=== PATIENT | female | born 1995 | race Caucasian/White ===

== ENCOUNTER → 2017-04-20 | Outpatient (CLI) | payer BC ==
--- NOTE | 2017-04-20 10:12 | Diagnostic Imaging Report ---
First trimester OB ultrasound. INDICATION: Dating. FINDINGS: There is a normal-appearing single intrauterine . An embryo is seen with cardiac activity at 160 beats per minute. The crown-rump length is at 7 weeks and 3 days. CORWIN is 12/04/17. IMPRESSION: Live single intrauterine . Dictated by: Dictated on workstation # [id number]
== END ==
LOC: RAD 09:33
PROVIDERS: ATTEND Family Medicine
DX: Z36 Encounter for antenatal screening of mother (principal); Z3A.00 Weeks of gestation of pregnancy not specified
CPT/HCPCS: 76801

== ENCOUNTER → 2017-07-04 | Outpatient (CLI) | payer BC ==
--- NOTE | 2017-07-04 18:00 | Diagnostic Imaging Report ---
INDICATION: survey. TECHNIQUE: Multiple real-time grayscale images were obtained over the gravid uterus. COMPARISON: 04/20/2017 FINDINGS: Single live intrauterine fetus. The fetus is active in variable. Placenta is posterior. Placenta does extend into the lower uterine segment and does appear to represent a previa at this time. Amniotic fluid index is normal. heart rate of 143 beats per minute. anatomical survey was somewhat limited as the spine and four-chamber heart were not demonstrated due to positioning. The remainder of the survey was normal. Biometrical measurements are as follows: Biparietal 4.18 cm, age 18 weeks 5 days. Head circumference 15.78 cm, age 18 weeks 5 days. Abdominal circumference 12.83 cm, age 18 weeks 3 days. Femur length 3.08 cm, age 19 weeks 4 days. Sonographic estimate age: 18 weeks 6 days. Sonographic estimated date of delivery: 11/29/2017. Estimated Weight: 263 gm (+/- 39 gm). LMP percentile: 88%. heart rate: 134 beats per minute. number: 1 of 1. IMPRESSION: 1. Current ultrasound shows biometric measurements average for 18 week 6 day gestation. Previous ultrasound indicates 18 week 1 day gestation which is within one standard deviation. 2. Limited survey with spine not well demonstrated and four-chamber heart not demonstrated on this exam. Remainder of the exam was normal. Dictated by: Dictated on workstation # [id number]
== END ==
LOC: RAD 16:50
PROVIDERS: ATTEND Family Medicine
DX: Z36.87 Encounter for antenatal screening for uncertain dates (principal); Z3A.18 18 weeks gestation of pregnancy
CPT/HCPCS: 76805

== ENCOUNTER → 2017-08-24 | Outpatient (CLI) | payer BC ==
--- NOTE | 2017-08-24 18:48 | Diagnostic Imaging Report ---
INDICATION: Earlier exam was limited visualization of the spine and heart. Followup performed. EXAMINATION: OB ultrasound. FINDINGS: Ferrer gestation is in variable position, measuring 25 weeks 3 days. The posterior placenta extends to cover the cervical os. The four-chamber heart and spine are shown to be normal. Amniotic fluid volume is normal. IMPRESSION: Posterior placenta with complete previa redemonstrated. Normal anatomical survey measuring 25 weeks 3 days. TECHNIQUE: Multiple real-time grayscale images were obtained over the gravid uterus. Dictated by: Dictated on workstation # [id number]
== END ==
LOC: RAD 14:31
PROVIDERS: ATTEND Family Medicine
DX: Z34.92 Encounter for supervision of normal pregnancy, unspecified, second trimester (principal); Z3A.25 25 weeks gestation of pregnancy
CPT/HCPCS: 76816

== ENCOUNTER → 2017-09-16 | Outpatient (CLI) | payer BC | LOC: WSo 08:19 | PROVIDERS: ATTEND Family Medicine | DX: Z41.8 Encounter for other procedures for purposes other than remedying health state (principal) | CPT/HCPCS: 96372 ==

== ENCOUNTER → 2017-09-29 | Outpatient (CLI) | payer BC ==
--- NOTE | 2017-09-29 16:21 | Diagnostic Imaging Report ---
INDICATION: Follow-up previa. TECHNIQUE: Multiple real-time grayscale images were obtained over the gravid uterus. COMPARISON: 04/20/2017, 07/04/2017, and 08/24/2017. FINDINGS: The previous OB ultrasound exam performed on 08/24/2017 noted a single live fetus of approximately 25 weeks 2 days gestation. There were no abnormalities identified; however, there did appear to be a complete posterior placenta previa. On this study, the fetus is again identified. The fetus is cephalic in presentation and heart motion is noted with a rate of 129 bpm recorded. There are no obvious abnormalities identified. The posterior placenta previa seen previously is again evident. The placenta has regressed somewhat since the prior exam, but there still appears to be a marginal previa present. The amniotic fluid volume is within normal limits. The growth parameters are not obtained for this study. IMPRESSION: 1. There is a single live fetus of approximately 30 weeks 4 days gestation +/- 1 week. The EDC remains 12/04/2016. 2. The complete posterior placenta previa seen previously has regressed. There is still at least a marginal previa present however. A short-term (4-6 weeks) follow-up ultrasound exam would be recommended for further study. 3. There are no obvious abnormalities identified. Dictated by: Dictated on workstation # [id number]
== END ==
LOC: RAD 12:13
PROVIDERS: ATTEND Family Medicine
DX: O44.23 Partial placenta previa NOS or without hemorrhage, third trimester (principal); Z3A.30 30 weeks gestation of pregnancy
CPT/HCPCS: 76816

== ENCOUNTER → 2017-10-27 | Outpatient (CLI) | payer BC ==
--- NOTE | 2017-10-28 12:09 | Diagnostic Imaging Report ---
INDICATION: Placenta previa. COMPARISON is made with prior examination from 09/29/2017. There is a single live fetus in cephalic presentation. The posterior placenta is now in a low lying position, approximately 1.2 cm from the internal cervical os. Cervical length is 3.5 cm. The amniotic fluid volume is normal. heart rate was recorded at 120 beats per minute. IMPRESSION: Low lying/near marginal posterior placenta, as described. Dictated by: Dictated on workstation # [id number]
== END ==
LOC: RAD 10:19
PROVIDERS: ATTEND Family Medicine
DX: O44.00 Complete placenta previa NOS or without hemorrhage, unspecified trimester (principal); Z3A.00 Weeks of gestation of pregnancy not specified
CPT/HCPCS: 76815

== ENCOUNTER → 2017-11-24 | Outpatient (CLI) | payer BC ==
--- NOTE | 2017-11-24 16:24 | Diagnostic Imaging Report ---
INDICATION: Low-lying placenta TECHNIQUE: Multiple real-time grayscale images were obtained over the gravid uterus. COMPARISON: 04/20/2017 and 10/27/2017. FINDINGS: The previous OB ultrasound exam performed on 10/27/2017 noted a single live fetus in cephalic presentation. There was a posterior low-lying placenta approximately 1.2 cm from the internal cervical os. On this exam, there is again a single live fetus in cephalic presentation. heart motion is noted and a rate of 135 bpm is recorded. The placenta is posterior and low-lying. The placenta lies approximately 1.6 cm from the internal os. The amniotic fluid volume is within normal limits. IMPRESSION: 1. There is a single live fetus in cephalic presentation. 2. The placenta is posterior and low-lying, but the placenta does lie a few millimeters farther from the os than noted on the prior exam. Dictated by: Dictated on workstation # [id number]
== END ==
LOC: RAD 13:08
PROVIDERS: ATTEND Family Medicine
DX: O44.43 Low lying placenta NOS or without hemorrhage, third trimester (principal); Z3A.38 38 weeks gestation of pregnancy
CPT/HCPCS: 76816

== ENCOUNTER 2017-11-30 19:00 | Inpatient (IN) | payer BC ==
[~2017-11-30] VITALS: Ht 170.2 cm; Wt 124.9 kg
[2017-11-30 19:15] VITALS: BP 145/85
[2017-11-30] MEDS ORDERED: ZOLPIDEM 5 MG (AMBIEN) TAB PO PRN (19:15)
[2017-11-30] MEDS ORDERED: DINOPROSTONE 10 MG (CERVIDIL) INSERT PV ONE (19:15)
[2017-11-30] MEDS ORDERED: MINERAL OIL CONCENTRATE 99.9% 15 ML UDC TOP PRN (19:15)
[2017-11-30] MEDS: D5 LR IV SOLUTION 1,000 ML IV SCH (19:35)
[2017-11-30 19:46] LABS: BASOPHILS % (AUTO) 0 % (0-10); EOSINOPHILS # (AUTO) 0.2 10^3/uL (0.0-0.3); EOSINOPHILS % (AUTO) 2 % (0-10); HEMATOCRIT 37 % (35-52); HEMOGLOBIN 12.7 G/DL (11.5-16.0); LYMPHOCYTES # (AUTO) 1.9 X 10^3 (1.0-4.0); LYMPHOCYTES % (AUTO) 17 % (12-44); MEAN CORPUSCULAR HEMOGLOBIN 29 PG (25-34); MEAN CORPUSCULAR HGB CONC 34 G/DL (32-36); MEAN CORPUSCULAR VOLUME 83 FL (80-99); MEAN PLATELET VOLUME 11.7 FL (7.4-10.4); MONOCYTES # (AUTO) 0.8 X 10^3 (0.0-1.0); MONOCYTES % (AUTO) 7 % (0-12); NEUTROPHILS # (AUTO) 8.1 X 10^3 (1.8-7.8); NEUTROPHILS % (AUTO) 74 % (42-75); PLATELET COUNT 189 10^3/uL (130-400); RED BLOOD COUNT 4.44 10^6/uL (4.35-5.85); RED CELL DISTRIBUTION WIDTH 14.1 % (10.0-14.5)
[2017-11-30] MEDS ORDERED: BUTORPHANOL INJ 2 MG/ML (STADOL) VIAL IV PRN (20:15)
[2017-11-30] MEDS ORDERED: FERR159T2 PO (22:17)
[2017-11-30] MEDS ORDERED: PREN-53 PO (22:17)
[2017-11-30] MEDS: CATHETER FLUSH 10 ML SYR IV SCH (22:29)
[2017-11-30 22:39] VITALS: BP 122/84
[2017-12-01] VITALS (21 sets, daily range): BP systolic 104–175; BP diastolic 62–95
[2017-12-01] MEDS: D5 LR IV SOLUTION 1,000 ML IV SCH ×2 (03:29→11:04)
[2017-12-01] MEDS ORDERED: INFLUENZA TRIvalent 2017-2018 0.5 ML/45 MCG SYR IM ONE (07:00)
[2017-12-01] MEDS: CATHETER FLUSH 10 ML SYR IV SCH (07:05)
[2017-12-01] MEDS ORDERED: OXYTOCIN/NORMAL SALINE 500 ML IV SCH ×2 (07:21→11:29)
--- NOTE | 2017-12-01 07:28 | History & Physical-OB ---
OB - Chief Complaint & HPI Date/Time Date of Admission: Date of Admission: Nov 30, 2017 at 20:20 Time Seen by Provider: 07:15 Chief Complaint/History OB-Reason for Admission/Chief: Induction of Labor Hx : 1 Hx Para: 0 Expected Date of Delivery: Dec 04, 2017 Gestational Age in Weeks: 39 Gestational Age in Days: 3 Indication for induction: other (low lying placenta) Admission Nurse Assessment Rev: Yes History of Labs GBS negative Allergies and Home Medications Allergies Coded Allergies: No Known Drug Allergies (Unverified , 11/30/17) Home Medications Ferrous Sulfate, Dried 159 Mg Tablet.er, 159 MG PO DAILY, (Reported) [id number]/Iron Fumarate/FA/Dss 1 Each Tablet, 1 EACH PO DAILY, (Reported) Patient Home Medication List Home Medication List Reviewed: Yes OB - History Hx of Present Care: Yes Ultrasounds: Normal mid trimester US (except for low lying placenta (placental edge within 1.6 cm of os)) Obstetrical Complications: None Medical Complications: None Delivery History Adverse Rxn to Tranfusion: No Patient Past Medical History No chronic medical problems Social History/Family History HIV/AIDS: No Recent Infectious Disease Expo: No Sexually Transmitted Disease: No Alcohol Use: Denies Use Recreational Drug Use: No OB - Admission Exam Physical Exam Vitals: Vital Signs 12/01/17 06:07 Temp 98.6 Pulse 110 Resp 20 B/P (MAP) 130/83 (99) O2 Delivery Room Air HEENT: Moist Membranes Heart: Rhythm Normal Lungs: Clear Abdomen: Gravid Extremities: Normal Reflexes: Normal Cervical Dilatation: None Effacement: 50% Station: -3 Membranes: Intact Heart Rate: 130's Accelerations: Accelerations Present Decelerations: No Decelerations Short Term Variability: Present Road Crossing Guard Variability: Average (6-25) Contractions on Admission: None Salter Scoring Tool (Modified) Dilation (cm): 0/Closed (0) Effacement (%): 31-51% (1) Descent/Station: -3 (0) Cervix Consistency: Soft (2) Cervix Position: Posterior (0) Salter Score: 3 Labs Laboratory Tests Test 11/30/17 19:35 Range/Units White Blood Count 11.0 4.3-11.0 10^3/uL Red Blood Count 4.44 4.35-5.85 10^6/uL Hemoglobin 12.7 11.5-16.0 G/DL Hematocrit 37 35-52 % Mean Corpuscular Volume 83 80-99 FL Mean Corpuscular Hemoglobin 29 25-34 PG Mean Corpuscular Hemoglobin Concent 34 32-36 G/DL Red Cell Distribution Width 14.1 10.0-14.5 % Platelet Count 189 130-400 10^3/uL Mean Platelet Volume 11.7 H 7.4-10.4 FL Neutrophils (%) (Auto) 74 42-75 % Lymphocytes (%) (Auto) 17 12-44 % Monocytes (%) (Auto) 7 0-12 % Eosinophils (%) (Auto) 2 0-10 % Basophils (%) (Auto) 0 0-10 % Neutrophils # (Auto) 8.1 H 1.8-7.8 X 10^3 Lymphocytes # (Auto) 1.9 1.0-4.0 X 10^3 Monocytes # (Auto) 0.8 0.0-1.0 X 10^3 Eosinophils # (Auto) 0.2 0.0-0.3 10^3/uL Basophils # (Auto) 0.0 0.0-0.1 10^3/uL OB - Assessment/Plan/Diagnosis Assessment Assessment: induction of labor Admission Dx 1. IUP at [id number] 2. Low lying placenta Admission Status: Inpatient Order (span 2 midnights) Reason for Inpatient Admission: for induction of labor Plan Plan: Induction (by cervidil) Induction Method: other (cervidil) Other Plan with low lying placenta (1.6cm of os) provided patient progresses well, vaginal to be anticipated. If labor not progressing well, plan on primary low transverse and patient and agree with plan. JEREMIAH WEIR MD Dec 01, 2017 07:28
[2017-12-01] MEDS ORDERED: ceFAZolin 2 GM IV Premixed 50 ML IV NR (11:21)
[2017-12-01] MEDS ORDERED: metroNIDAZOLE 500MG/100ML IVPB 100 ML IV NR (11:21)
[2017-12-01] MEDS ORDERED: LACTATED RINGERS 1,000 ML IV PRN ×2 (11:27)
--- NOTE | 2017-12-01 11:29 | Progress Note-Pre Operative ---
Pre-Operative Progress Note H&P Reviewed The H&P was reviewed, patient examined and no changes noted. Date Seen by Provider: Dec 01, 2017 Time Seen by Provider: 11:28 Date H&P Reviewed: Dec 01, 2017 Time H&P Reviewed: 11:29 Pre-Operative Diagnosis: TIUP FTP High Station JUDI ASCENCIO MD Dec 01, 2017 11:29 am
[2017-12-01] MEDS ORDERED: ONDANSETRON 4 MG/2 ML (SDV) Z0FRAN IVP PRN (11:30)
[2017-12-01] MEDS ORDERED: CITRIC ACID/SOB CIT (BICITRA) 30 ML UDC PO ONE (11:30)
[2017-12-01] MEDS ORDERED: MEASLES,MUMPS,RUBELLA 1 EA INJ SC ONE (11:30)
[2017-12-01] MEDS ORDERED: MEPERIDINE (DEMEROL) INJ 100 MG/ML IM PRN (11:30)
[2017-12-01] MEDS ORDERED: METOCLOPRAMIDE INJ 10 MG/2 ML (REGLAN) IV ONE (11:30)
[2017-12-01] MEDS ORDERED: CATHETER FLUSH 10 ML SYR IV PRN (11:30)
[2017-12-01] MEDS ORDERED: FAMOTIDINE 20MG/2ML IV (PEPCID) IV ONE (11:30)
[2017-12-01] MEDS ORDERED: TETANUS,DIPTH,PERTUSS P/F (BOOSTRIX) 0.5 ML VIAL IM ONE (11:30)
[2017-12-01] MEDS ORDERED: PROMETHAZINE INJ 25 MG/ML (PHENERGAN) AMP IM PRN (11:30)
[2017-12-01] MEDS ORDERED: fentaNYL INJECTION 100 MCG/2 ML AMP ONE (11:32)
[2017-12-01] MEDS ORDERED: D5 LR IV SOLUTION 1,000 ML IV ONE (11:37)
[2017-12-01] MEDS ORDERED: OXYTOCIN/NORMAL SALINE 1,000 ML IV ONE (11:37)
--- NOTE | 2017-12-01 11:42 | Progress Note (SOAP) ---
Subjective Date Seen by Provider: Dec 01, 2017 Time Seen by Provider: 11:20 Subjective/Events-last exam No progress with regards to cervical change. Pit at 12 uU/min. Objective Exam Vital Signs Date Time Temp Pulse Resp B/P (MAP) Pulse Ox O2 Delivery O2 Flow Rate FiO2 12/01/17 11:15 114 20 138/86 (103) Room Air 12/01/17 11:00 100 20 157/81 (106) Room Air 12/01/17 10:45 102 20 152/81 (104) Room Air 12/01/17 10:30 97.9 110 20 148/89 (108) Room Air 12/01/17 10:15 108 20 143/89 (107) Room Air 12/01/17 10:00 110 20 141/81 (101) Room Air 12/01/17 09:45 106 20 165/87 (113) Room Air 12/01/17 09:15 20 Room Air 12/01/17 09:00 95 20 130/68 (88) Room Air 12/01/17 08:45 99 20 129/77 (94) Room Air 12/01/17 08:30 103 20 175/92 (119) Room Air 12/01/17 08:15 102 20 140/77 (98) Room Air 12/01/17 08:00 96 20 138/79 (98) Room Air 12/01/17 07:45 100 20 139/74 (95) Room Air 12/01/17 07:30 105 20 146/84 (104) Room Air 12/01/17 07:15 111 20 142/95 (111) Room Air 12/01/17 06:07 98.6 110 20 130/83 (99) Room Air 12/01/17 02:30 98.5 99 20 128/82 (97) Room Air 11/30/17 22:39 97.7 93 20 122/84 (97) Room Air 11/30/17 19:15 99.7 123 20 145/85 (105) Room Air I & O 12/01/17 07:00 Intake Total 2122 ml Balance 2122 ml Capillary Refill : General Appearance: No Apparent Distress Other comments Cervix closed with no effacement change Results Lab Laboratory Tests 11/30/17 19:35: White Blood Count 11.0, Red Blood Count 4.44, Hemoglobin 12.7, Hematocrit 37, Mean Corpuscular Volume 83, Mean Corpuscular Hemoglobin 29, Mean Corpuscular Hemoglobin Concent 34, Red Cell Distribution Width 14.1, Platelet Count 189, Mean Platelet Volume 11.7H, Neutrophils (%) (Auto) 74, Lymphocytes (%) (Auto) 17 , Monocytes (%) (Auto) 7, Eosinophils (%) (Auto) 2, Basophils (%) (Auto) 0, Neutrophils # (Auto) 8.1H, Lymphocytes # (Auto) 1.9, Monocytes # (Auto) 0.8, Eosinophils # (Auto) 0.2, Basophils # (Auto) 0.0 Assessment/Plan Assessment/Plan Assess & Plan/Chief Complaint 1. IUP at 39w4d -failure to progress with high station -will proceed with primary low transverse CS -Dr Bettencourt and surgery crew notified. 2. Low lying placenta Clinical Quality Measures DVT/VTE Risk/Contraindication: Risk Factor Score Per Nursin RFS Level Per Nursing on Admit: 1=Low/No VTE PPX JEREMIAH WEIR MD Dec 01, 2017 11:42
[2017-12-01] MEDS ORDERED: ONDANSETRON 4 MG/2 ML (SDV) Z0FRAN ONE (12:15)
[2017-12-01] MEDS ORDERED: PHENYLEPHRINE 100 MCG/ML 10 ML (ANESTHESIA) SYR ONE (12:15)
[2017-12-01] MEDS ORDERED: diphenhydrAMINE 50 MG/ML INJ (BENADRYL) IV PRN (12:30)
[2017-12-01] MEDS ORDERED: ONDANSETRON 4 MG/2 ML (SDV) Z0FRAN IV PRN (12:30)
[2017-12-01] MEDS ORDERED: NALOXONE 0.4 MG/ML 1 ML (NARCAN) VIAL IV PRN (12:30)
[2017-12-01] MEDS: KETOROLAC 30 MG/ML VIAL IVP SCH ×2 (13:40→20:10)
--- NOTE | 2017-12-01 15:04 | OPERATIVE REPORT ---
DATE OF SERVICE: 12/01/2017 PREOPERATIVE DIAGNOSES: Term in labor with failure to progress/high station and a history of posterior low lying/marginal placenta. POSTOPERATIVE DIAGNOSES: Term in labor with failure to progress/high station and a history of posterior low lying/marginal placenta with thick meconium. OPERATIVE PROCEDURE: Primary low transverse delivery of a viable female infant with Apgars of 3, 9 and 9 at 1, 5 and 10 minutes. Weight was 8 pounds 11 ounces, cord blood arterial pH was 7.10 and time was 11:56. Assistant Quality Manager for delivery was Dr. Shelton. REED FIXER: For delivery was Dr. Shelton. OPERATIVE DESCRIPTION: With the patient in the supine position under satisfactory spinal anesthesia, she was prepped and draped in the usual fashion for abdominal surgery. De Oliveira catheter was placed in the urinary bladder. A Pfannenstiel incision was made through skin with a scalpel. The patient's abdomen entered in the usual manner. Bladder retractor was placed in position, clean scalpel used to make a 4 cm hysterotomy incision transversely across the lower uterine segment that was extended by blunt dissection as well. Membranes were ruptured on hysterotomy. Thick green meconium fluid was noted. The incision was extended bluntly and then Morse forceps were applied to facilitate the delivery of a viable female with stats as noted above. The infant was bulb suctioned on delivery of the head. Again on completion of delivery there was a nuchal cord x1 that was easily released after delivery of the head. The was relatively quickly pinked and moved all extremities. The umbilical cord was doubly clamped and cut and Dr. Shelton took the to the warmer as he was the bioassayist in attendance. Cord bloods were obtained. The placenta delivered spontaneously Sherman. It was quite large and normal with a 3-vessel cord. The uterus was exteriorized, the interior wiped clean with a wet laparotomy sponge. Uterine incision then closed with a running locked suture of 2-0 Vicryl. Hemostasis was satisfactory; however, the uterus was quite atonic. The uterus was then secured with a modified B-Paris suture of 0 chromic. This compressed the uterus nicely and stemmed any further blood flow. The uterus was returned to abdominal cavity. All blood clot and debris was removed from the abdominal cavity. Sponge and needle counts correct, hemostasis assured. The anterior parietal peritoneum was closed with running suture of 2-0 Vicryl. The rectus muscles were closed with that suture as well. The rectus fascia was closed with 2-0 Vicryl, subcutaneous tissue with 2-0 Vicryl and the skin was stapled. Sponge and needle counts were correct at the end of procedure. Estimated blood loss for procedure was around 700 mL. The patient tolerated the procedure well and was transferred to the recovery room in stable condition. The infant had been taken stable to the full term nursery in the care of Dr. Shelton. Job ID: [id number] DocumentID: [id number] Dictated Date: 12/01/2017 12:46:58 Food Service Specialist Date: 12/01/2017 15:03:05 Dictated By: JUDI ASCENCIO MD
[2017-12-01] MEDS: DOCUSATE SODIUM 100 MG (COLACE) CAP PO SCH (20:10)
[2017-12-01] MEDS: oxyCODONE/APAP 10/325MG (PERCOCET 10) TABLET PO PRN (23:36)
[2017-12-02] MEDS: KETOROLAC 30 MG/ML VIAL IVP SCH (01:54)
[2017-12-02 05:18] VITALS: BP 121/78
[2017-12-02] MEDS: oxyCODONE/APAP 10/325MG (PERCOCET 10) TABLET PO PRN ×3 (05:18→17:20)
--- NOTE | 2017-12-02 08:17 | Progress Note-Standard ---
Standard Progress Note Progress Notes/Assess & Plan Date Seen by Provider: Dec 02, 2017 Time Seen by Provider: 08:16 Progress/Assessment & Plan This patient is without complaint. She is ambulating, voiding, tolerating fairly, has good pain control. Vital Signs Date Time Temp Pulse Resp B/P (MAP) Pulse Ox O2 Delivery O2 Flow Rate FiO2 12/02/17 05:18 97.0 90 18 121/78 (92) 97 Room Air 12/01/17 23:15 99.1 110 18 125/72 (89) 96 Room Air 12/01/17 20:10 97.9 108 18 135/75 (95) 98 Room Air 12/01/17 15:00 78 20 104/62 (76) Room Air 12/01/17 11:30 114 20 138/86 (103) Room Air 12/01/17 11:15 114 20 138/86 (103) Room Air 12/01/17 11:00 100 20 157/81 (106) Room Air 12/01/17 10:45 102 20 152/81 (104) Room Air 12/01/17 10:30 97.9 110 20 148/89 (108) Room Air 12/01/17 10:15 108 20 143/89 (107) Room Air 12/01/17 10:00 110 20 141/81 (101) Room Air 12/01/17 09:45 106 20 165/87 (113) Room Air 12/01/17 09:15 20 Room Air 12/01/17 09:00 95 20 130/68 (88) Room Air 12/01/17 08:45 99 20 129/77 (94) Room Air 12/01/17 08:30 103 20 175/92 (119) Room Air I & O 12/02/17 07:00 Intake Total 4450 ml Output Total 2600 ml Balance 1850 ml Vital signs are stable. Patient is afebrile. Fundus is firm below the umbilicus and nontender. Incision is clean dry and intact. Extremities show clubbing cyanosis. There is no Homans sign. Assessment and plan operative day number 1 status post primary doing well. Plan is for routine convalescence care JUDI ASCENCIO MD Dec 02, 2017 8:17 am
[2017-12-02 10:05] VITALS: BP 146/77
[2017-12-02] MEDS: DOCUSATE SODIUM 100 MG (COLACE) CAP PO SCH (10:18)
[2017-12-02] MEDS ORDERED: IBUPROFEN 800 MG (MOTRIN) TAB PO SCH (11:30)
[2017-12-02 13:00] VITALS: BP 122/81
[2017-12-02] MEDS ORDERED: IBUP-1780 PO (17:11)
[2017-12-02] MEDS ORDERED: OXYC-465 PO (17:11)
[2017-12-02] MEDS ORDERED: DOCU100C37 PO (17:11)
--- NOTE | 2017-12-02 17:14 | Discharge Instructions ---
Discharge Instructions Discharge Medications New, Converted or Re-Newed RX: RX on Chart Patient Instructions Patient Instructions: As directed Return to The Hospital For: As directed Activity & Diet Discharge Diet: No Restrictions Activity as Tolerated: No Orders-Post D/C & Referrals Follow Up Appt: RTC with me on Tuesday, December 05, 2017 between 830 a.m. and 430 p.m. for incision check and staple removal. Call to make follow up appt. for patient with Dr. Guido in 6 weeks. Wound Care: Remove trevor, apply benzoin and steri strips. Activity Per routine post instructions. Please call in RX to patient pharmacy. Diet as tolerated Patient may shower or tub bathe as desired. Continue home meds JUDI ASCENCIO MD Dec 02, 2017 5:14 pm
== END 2017-12-02 19:05 | disposition home or self-care (01) | DRG 766 ==
LOC: LDRP 19:00 → WSo 19:00 → LDRP 20:20
PROVIDERS: ADMIT Family Medicine; ATTEND Family Medicine
PROC: 3E0P7GC Introduction of Other Therapeutic Substance into Female Reproductive, Via Natural or Artificial Opening (ICD-10-PCS; 2017-11-30)
PROC: 10D00Z1 Extraction of Products of Conception, Low, Open Approach (ICD-10-PCS; principal; 2017-12-01 11:39)
DX: O44.43 Low lying placenta NOS or without hemorrhage, third trimester (principal); O32.4XX0 Maternal care for high head at term, not applicable or unspecified; O77.0 Labor and delivery complicated by meconium in amniotic fluid; Z3A.39 39 weeks gestation of pregnancy; Z37.0 Single live birth
CPT/HCPCS: 36415; 83033; 85025; 86850; 86900; 86901; 94664

== ENCOUNTER 2017-12-29 05:48 | Emergency (ER) | payer BC ==
[~2017-12-29] VITALS: Ht 170.2 cm; Wt 113.4 kg
[~2017-12-29 05:48] MED LIST: DOCU100C37 PO; FERR159T2 PO; IBUP-1780 PO; OXYC-465 PO; PREN-53 PO
[2017-12-29] MEDS ORDERED: ONDANSETRON 4 MG/2 ML (SDV) Z0FRAN ONE (05:53)
[2017-12-29] MEDS ORDERED: KETOROLAC 30 MG/ML VIAL ONE (05:53)
--- OUTSIDE RECORDS SUMMARY | 2017-12-29 05:54 | XMS REPORT ---
Author Author JOES SERRATO Organization [employer] Address Unknown Phone Unavailable Care Team Providers Care Recreational Therapy Aide Name Role Phone JOSE SERRATO CP Unavailable Allergies, Adverse Reactions, Alerts Substance Reaction Event Type N.K.D.A. Info Not Available Non Drug Allergy Problems Problem Type Condition Code Onset Dates Condition Status Assessment Cough R05 Active Medications Medication Code System Code Instructions Start Date End Date Status Dosage Sprintec 28 [facility] [address]-46 0.25-35 MG-MCG Orally Once a day 1 tablet PredniSONE [facility] [address]-18 20 MG Orally Once a day Jul 17, 2015 Jul 22, 2015 2 tablets with food or milk Benadryl [facility] [address]-19 25 MG Orally every 6 hrs 1 capsule as needed Sudafed [facility] [address]-39 30 MG Orally every 6 hrs 1 tablet as needed Azithromycin [facility] [address]-51 250 MG Orally Once a day Jul 17, 2015 Jul 22, 2015 2 tablets on the first day, then 1 tablet daily for 4 days Procedures Procedure Coding System Code Date Office Visit, Est Pt., Level 3 CPT-4 39564 Jul 17, 2015 Vital Signs Date/Time: Jul 17, 2015 Temperature 97.9 F BMIPercentile 98.16 % Weight 248.2 lbs Height 68 in BMI 37.73 Index Blood Pressure Diastolic 64 mmHg Blood Pressure Systolic 112 mmHg Cardiac Monitoring Heart Rate 96 bpm Wt Percentile 99.32 % Ht Percentile 92.84 % Results No Known Results Summary Purpose [employer] Submission
--- OUTSIDE RECORDS SUMMARY | 2017-12-29 05:54 | XMS REPORT ---
Author ELIZABETH Lerma [facility] [employer] Address Unknown Phone Unavailable Care Team Providers Care Bezel Cutter Name Role Phone ELIZABETH PALOMINO CP Unavailable Allergies No Known Allergies Problems Problem Type Condition ICD-9 Code Onset Dates Condition Status Assessment Encounter for PPD test V74.1 Active Medications No Known Medications Procedures Procedure Coding System Code Date TB INTRADERMAL TEST CPT-4 43043 May 27, 2015 Results No Known Results Summary Purpose [employer] Submission
[2017-12-29] MEDS ORDERED: KETOROLAC 30 MG/ML VIAL IVP ONE (06:00)
[2017-12-29] MEDS ORDERED: ONDANSETRON 4 MG/2 ML (SDV) Z0FRAN IVP ONE (06:00)
[2017-12-29 06:04] LABS: BASOPHILS % (AUTO) 0 % (0-10); EOSINOPHILS # (AUTO) 0.4 10^3/uL (0.0-0.3); EOSINOPHILS % (AUTO) 4 % (0-10); HEMATOCRIT 40 % (35-52); HEMOGLOBIN 13.6 G/DL (11.5-16.0); LYMPHOCYTES # (AUTO) 4.2 X 10^3 (1.0-4.0); LYMPHOCYTES % (AUTO) 41 % (12-44); MEAN CORPUSCULAR HEMOGLOBIN 28 PG (25-34); MEAN CORPUSCULAR HGB CONC 34 G/DL (32-36); MEAN CORPUSCULAR VOLUME 80 FL (80-99); MEAN PLATELET VOLUME 11.6 FL (7.4-10.4); MONOCYTES # (AUTO) 0.5 X 10^3 (0.0-1.0); MONOCYTES % (AUTO) 5 % (0-12); NEUTROPHILS % (AUTO) 49 % (42-75); PLATELET COUNT 191 10^3/uL (130-400); RED BLOOD COUNT 4.91 10^6/uL (4.35-5.85); RED CELL DISTRIBUTION WIDTH 12.8 % (10.0-14.5); WHITE BLOOD COUNT 10.1 10^3/uL (4.3-11.0)
--- NOTE | 2017-12-29 06:04 | ED Back Pain ---
General Stated Complaint: BACK PAIN Source of Information: Patient Exam Limitations: No Limitations (HELENE RODRIGUEZ) History of Present Illness Date Seen by Provider: Dec 29, 2017 Time Seen by Provider: 05:50 Initial Comments Patient presents to ER by private conveyance with her significant other and child with a complaint of pain in her back this started about 5:15 this morning came on suddenly is sharp and does not radiate. She's having no dysuria, hematuria, discharge. She had a 1 month ago. She is not on any control. She is breast-feeding. She's having no fevers, chills however she is having nausea without vomiting. No diarrhea. She does not have a history of kidney stones. She denies any recent trauma. No significant surgical or medical history. She takes an iron tablet and occasionally and ibuprofen with her last dose sometime yesterday. (HELENE RODRIGUEZ) Allergies and Home Medications Allergies Coded Allergies: No Known Drug Allergies (Unverified , 11/30/17) Home Medications Docusate Sodium 100 Mg Capsule, 100 MG PO BID Prescribed by: JUDI LOMAS on 12/02/171710 Ferrous Sulfate, Dried 159 Mg Tablet.er, 159 MG PO DAILY, (Reported) Ibuprofen 800 Mg Tablet, 800 MG PO Q6H Prescribed by: JUDI LOMAS on 12/02/171710 Oxycodone HCl/Acetaminophen 1 Each Tablet, 1-2 TAB PO Q4HR PRN for PAIN- MODERATE TO SEVERE Prescribed by: JUDI LOMAS on 12/02/171710 [id number]/Iron Fumarate/FA/Dss 1 Each Tablet, 1 EACH PO DAILY, (Reported) Patient Home Medication List Home Medication List Reviewed: Yes (CHRISTI CABA MD) Constitutional: No chills, No diaphoresis EENTM: No ear pain, No eye pain Respiratory: No cough, No short of breath, No wheezing Cardiovascular: No chest pain, No edema, No palpitations Gastrointestinal: No abdominal pain, No constipation, No diarrhea; nausea; No vomiting Genitourinary: No discharge, No dysuria, No hematuria : No Control/STD Prophylaxis: None (1 month out from delivery) Musculoskeletal: see HPI, back pain (HELENE RODRIGUEZ) Past Whrjtlf-Lkvrve-Uqiyta Hx Patient Social History Alcohol Use: Denies Use Recent Foreign Travel: No Contact w/Someone Who Travel: No Recent Hopitalizations: No (HELENE RODRIGUEZ) Seasonal Allergies Seasonal Allergies: Yes (HELENE RODRIGUEZ) Past Medical History Surgeries: Yes (wisdom teeth and tonsillectomy) Respiratory: No Cardiac: No Neurological: No Sexually Transmitted Disease: No HIV/AIDS: No Genitourinary: No Gastrointestinal: No Musculoskeletal: No Endocrine: No HEENT: No Cancer: No Psychosocial: No Integumentary: No Blood Disorders: No Adverse Reaction/Blood Tranf: No (HELENE RODRIGUEZ) Family Medical History Hypertension 19 FATHER Physical Exam Vital Signs Vital Signs - First Documented 12/29/17 06:03 Temp 97.0 Pulse 113 Resp 18 B/P (MAP) 148/84 (105) Pulse Ox 97 O2 Delivery Room Air (HCRISTI CABA MD) Vital Signs Capillary Refill : (HELENE RODRIGUEZ) General Appearance: Anxious, Mild Distress HEENT: PERRL/EOMI, Normal ENT Inspection, Pharynx Normal Neck: Full Range of Motion, Non Tender, Supple Cardiovascular: Regular Rate, Rhythm, No Edema Respiratory: Chest Non Tender, Lungs Clear, Normal Breath Sounds Peripheral Pulses: 2+ Radial Pulses (R), 2+ Radial Pulses (L) Gastrointestinal: Normal Bowel Sounds, Non Tender, Soft Back: Normal Inspection, No Vertebral Tenderness, CVA Tenderness (R) Extremity: Normal Capillary Refill, Normal Inspection Neurologic/Psychiatric: Alert, Oriented x3, No Motor/Sensory Deficits Skin: Normal Color, Warm/Dry (HELENE RODRIGUEZ) Progress/Results/Core Measures Lab Results Laboratory Tests Test 12/29/17 05:55 12/29/17 06:00 Range/Units White Blood Count 10.1 4.3-11.0 10^3/uL Red Blood Count 4.91 4.35-5.85 10^6/uL Hemoglobin 13.6 11.5-16.0 G/DL Hematocrit 40 35-52 % Mean Corpuscular Volume 80 80-99 FL Mean Corpuscular Hemoglobin 28 25-34 PG Mean Corpuscular Hemoglobin Concent 34 32-36 G/DL Red Cell Distribution Width 12.8 10.0-14.5 % Platelet Count 191 130-400 10^3/uL Mean Platelet Volume 11.6 H 7.4-10.4 FL Neutrophils (%) (Auto) 49 42-75 % Lymphocytes (%) (Auto) 41 12-44 % Monocytes (%) (Auto) 5 0-12 % Eosinophils (%) (Auto) 4 0-10 % Basophils (%) (Auto) 0 0-10 % Neutrophils # (Auto) 5.0 1.8-7.8 X 10^3 Lymphocytes # (Auto) 4.2 H 1.0-4.0 X 10^3 Monocytes # (Auto) 0.5 0.0-1.0 X 10^3 Eosinophils # (Auto) 0.4 H 0.0-0.3 10^3/uL Basophils # (Auto) 0.0 0.0-0.1 10^3/uL Sodium Level 141 135-145 MMOL/L Potassium Level 3.7 3.6-5.0 MMOL/L Chloride Level 105 98-107 MMOL/L Carbon Dioxide Level 27 21-32 MMOL/L Anion Gap 9 5-14 MMOL/L Blood Urea Nitrogen 12 7-18 MG/DL Creatinine 0.80 0.60-1.30 MG/DL Estimat Glomerular Filtration Rate > 60 BUN/Creatinine Ratio 15 Glucose Level 125 H 70-105 MG/DL Calcium Level 9.4 8.5-10.1 MG/DL Total Bilirubin 0.5 0.1-1.0 MG/DL Aspartate Amino Transf (AST/SGOT) 17 5-34 U/L Alanine Aminotransferase (ALT/SGPT) 24 0-55 U/L Alkaline Phosphatase 86 40-136 U/L Total Protein 6.9 6.4-8.2 GM/DL Albumin 4.1 3.2-4.5 GM/DL Urine Color YELLOW Urine Clarity CLEAR Urine pH 6.5 5-9 Urine Specific [place] 1.015 L 1.016-1.022 Urine Protein NEGATIVE NEGATIVE Urine Glucose (UA) NEGATIVE NEGATIVE Urine Ketones NEGATIVE NEGATIVE Urine Nitrite NEGATIVE NEGATIVE Urine Bilirubin NEGATIVE NEGATIVE Urine Urobilinogen NORMAL NORMAL MG/DL Urine Leukocyte Esterase 2+ H NEGATIVE Urine RBC (Auto) 2+ H NEGATIVE Urine RBC 2-5 H /HPF Urine WBC 2-5 /HPF Urine Squamous Epithelial Cells 0-2 /HPF Urine Crystals NONE /LPF Urine Bacteria TRACE /HPF Urine Casts NONE /LPF Urine Mucus NEGATIVE /LPF Urine Culture Indicated NO Urine Test NEGATIVE NEGATIVE Urine Opiates Screen NEGATIVE NEGATIVE Urine Oxycodone Screen NEGATIVE NEGATIVE Urine Methadone Screen NEGATIVE NEGATIVE Urine Propoxyphene Screen NEGATIVE NEGATIVE Urine Barbiturates Screen NEGATIVE NEGATIVE Ur Tricyclic Antidepressants Screen NEGATIVE NEGATIVE Urine Phencyclidine Screen NEGATIVE NEGATIVE Urine Amphetamines Screen NEGATIVE NEGATIVE Urine Methamphetamines Screen NEGATIVE NEGATIVE Urine Benzodiazepines Screen NEGATIVE NEGATIVE Urine Cocaine Screen NEGATIVE NEGATIVE Urine Cannabinoids Screen NEGATIVE NEGATIVE (CHRISTI CABA MD) My Orders Orders - CHRISTI CABA MD Ct Abd/Pelvis Wo(Kidney Stone) (12/29/17 06:47) (CHRISTI CABA MD) Medications Given in ED Current Medications Medications Dose Ordered Sig/Froy Route Start Time Stop Time Status Last Admin Dose Admin Ketorolac Tromethamine 15 mg ONCE ONCE IVP 12/29/17 06:00 12/29/17 06:01 DC 12/29/17 06:06 15 MG Ondansetron HCl 4 mg ONCE ONCE IVP 12/29/17 06:00 12/29/17 06:01 DC 12/29/17 06:06 4 MG (CHRISTI CABA MD) Vital Signs/I&O 12/29/17 06:03 Temp 97.0 Pulse 113 Resp 18 B/P (MAP) 148/84 (105) Pulse Ox 97 O2 Delivery Room Air (CHRISTI CABA MD) Transfer of Care Time: 06:04 Care transferred to: [facility] (HELENE RODRIGUEZ) Departure Communication (Admissions) The patient is a 22-year-old white female who was seen by me at 06 [address] Rodriguez on the previous shift. She had presented having awakened at 0500 with sharp back pain at the lower rib margin. This radiated both downward and upward. She also felt intensely nauseated and thought she might vomit. She is subsequently received Toradol with considerable improvement in her symptoms. Laboratory including UA was unremarkable. Dr. Rodriguez had expressed his concern that this was a kidney stone which would be a real possibility given the abrupt and intense onset of symptoms. The distribution of pain appears to be somewhat odd. Accordingly a CT scan was ordered. This suggests proximal right ureteral dilatation which would be consistent with a stone. A stone was not identified and may have already passed. Incidentally a large spleen and increased mesenteric nodes were noted. The significance is not clear. These findings were shared with the patient and her significant other. It is recommended that she follow-up with her physician Dr. WEIR. (CHRISTI CABA MD) Impression Primary Impression: flank pain/right hydroureter Disposition: HOME, SELF-CARE Condition: Improved Departure-Patient Inst. Decision time for Depature: 07:49 (CHRISTI CABA MD) Referrals: JEREMIAH WEIR MD (PCP/Family) Primary Care Physician Add. Discharge Instructions: Take plenty of fluids. Make appointment to see Dr. WEIR within the week. If symptoms recur notify Dr. WEIR or return to emergency room HELENE RODRIGUEZ Dec 29, 2017 06:04 CHRISTI CABA MD Dec 29, 2017 07:51
[2017-12-29 06:06] LABS: BILIRUBIN,URINE NEGATIVE (NEGATIVE); CLARITY,URINE CLEAR; COLOR,URINE YELLOW; GLUCOSE, URINE (UA) NEGATIVE (NEGATIVE); KETONES,URINE NEGATIVE (NEGATIVE); LEUKOCYTE ESTERASE ,URINE 2+ (NEGATIVE); NITRITE,URINE NEGATIVE (NEGATIVE); PH,URINE 6.5 (5-9); PROTEIN,URINE NEGATIVE (NEGATIVE); UROBILINOGEN,URINE NORMAL (NORMAL)
[2017-12-29 06:13] LABS: BACTERIA,URINE TRACE /HPF; SQUAMOUS EPITHELIAL CELL,UR 0-2 /HPF
[2017-12-29 06:14] LABS: HCG,QUALITATIVE URINE NEGATIVE (NEGATIVE)
[2017-12-29 06:16] LABS: AMPHETAMINE SCREEN, URINE NEGATIVE (NEGATIVE); BARBITURATE SCREEN URINE NEGATIVE (NEGATIVE); BENZODIAZEPINES SCREEN URINE NEGATIVE (NEGATIVE); CANNABINOID SCREEN, URINE NEGATIVE (NEGATIVE); COCAINE SCREEN URINE NEGATIVE (NEGATIVE); METHADONE STAT NEGATIVE (NEGATIVE); METHAMPHETAMINE SCREEN URINE S NEGATIVE (NEGATIVE); OPIATE SCREEN URINE NEGATIVE (NEGATIVE); OXYCODONE STAT NEGATIVE (NEGATIVE); PROPOXYPHENE STAT NEGATIVE (NEGATIVE); TRICYCLIC ANTIDEPRESSANTS SCRE NEGATIVE (NEGATIVE)
[2017-12-29 06:23] LABS: ALANINE AMINOTRANSFERASE 24 U/L (0-55); ALBUMIN 4.1 GM/DL (3.2-4.5); ALKALINE PHOSPHATASE 86 U/L (40-136); BILIRUBIN,TOTAL 0.5 MG/DL (0.1-1.0); BUN/CREATININE RATIO 15; CALCIUM 9.4 MG/DL (8.5-10.1); CARBON DIOXIDE 27 MMOL/L (21-32); CHLORIDE 105 MMOL/L (98-107); GFR ESTIMATED > 60; GLUCOSE 125 MG/DL (70-105); POTASSIUM 3.7 MMOL/L (3.6-5.0); SODIUM 141 MMOL/L (135-145); TOTAL PROTEIN 6.9 GM/DL (6.4-8.2)
--- NOTE | 2017-12-29 07:15 | Diagnostic Imaging Report ---
PROCEDURE: CT urinary tract, rule out kidney stone. TECHNIQUE: Multiple contiguous axial images were obtained through the abdomen and pelvis without the use of intravenous contrast. INDICATION: Back pain. Nausea. COMPARISON: None. FINDINGS: Included portions of lung bases are clear. CT Abdomen: Normal appendix is identified. Small bowel loops are nondistended. There is mild asymmetric prominence of the right ureter and right renal pelvis consistent with hydroureteronephrosis. Although the ureter cannot be followed in its entirely, distally, no calculi are seen along the expected course of the ureter. No renal calculi are seen on either side. Kidneys have an otherwise unremarkable noncontrast CT appearance. Spleen is mildly enlarged. It measures 15 cm in length. No focal splenic lesions are identified on this noncontrast exam. The liver, adrenal glands, and pancreas have a normal CT appearance. There is no loculated fluid collection, free fluid, nor free air within the pelvis. Multiple prominent mesenteric lymph nodes are identified. The largest measures approximately 1.1 cm in shortest axis dimension (image #79, series 2). Bony structures show no acute abnormality. CT pelvis: Urinary bladder is unopacified. No calculi are seen within the urinary bladder. There is no loculated fluid collection, free fluid, nor free air within the pelvis. No abnormal adenopathy is seen. Bony structures show no acute abnormalities. IMPRESSION: 1. Mild asymmetric right-sided hydronephrosis, but no evidence of renal or ureteral calculi are seen on either side. Findings could be on the basis of recently passed stone. Underlying urinary tract infection cannot be excluded. Clinical correlation recommended. 2. Mild splenomegaly. 3. Multiple prominent mesenteric lymph nodes. Although this can be seen with benign entities such as mesenteric adenitis, presence of splenomegaly is also of concern and does raise suspicion for underlying lymphoproliferative process such as lymphoma. Dictated by: Dictated on workstation # [id number]
[2017-12-29 08:08] VITALS: BP 136/76
== END 2017-12-29 08:08 | disposition home or self-care (01) ==
LOC: EDUNIT# 05:48 → ER 05:50
DX: O99.89 Other specified diseases and conditions complicating pregnancy, childbirth and the puerperium (principal); N13.4 Hydroureter; Z90.89 Acquired absence of other organs
CPT/HCPCS: 36415; 74176; 80053; 80306; 81000; 84703; 85025; 96374; 96375

== ENCOUNTER 2018-01-04 00:55 | Emergency (ER) | payer BC ==
[~2018-01-04] VITALS: Ht 170.2 cm; Wt 113.4 kg
[2018-01-04] MEDS ORDERED: FAMOTIDINE 20 MG (PEPCID) TABLET PO STA (01:09)
[2018-01-04] MEDS ORDERED: ONDANSETRON 4 MG/2 ML (SDV) Z0FRAN ONE (01:09)
[2018-01-04] MEDS ORDERED: ANTACID SUSP 30 ML UDC (MYLANTA) ONE (01:09)
[2018-01-04] MEDS ORDERED: LACTATED RINGERS 1,000 ML IV ONE (01:09)
[2018-01-04] MEDS ORDERED: LIDOCAINE 2% VISCOUS 15 ML UDC ONE (01:09)
--- NOTE | 2018-01-04 01:14 | ED Abdominal Pain ---
General Chief Complaint: Abdominal/GI Problems Stated Complaint: SOB,BACK PAIN Nursing Triage Note: PT TO ED 6 W/ S.O. 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 PT WAILING, SCREAMING ET HYPERVENTILATING UPON ARRIVAL ET WHEN CALLED BACK TO ROOM. NO DIFFICULTY AMBULATING UPON ARRIVAL. PT SEEN IN THIS ED 1-2WKS AGO FOR SAME C/O. TOLD "NOT SURE WHAT'S WRONG" PER PT. DOES REPORT SHE ATE TACOS PRIOR TO ONSET OF PAIN. THIS RN COACHED PT TO RELAX BREATHING AT THIS TIME Sepsis Screen: No Definite Risk Source of Information: Patient Exam Limitations: No Limitations History of Present Illness Date Seen by Provider: Jan 04, 2018 Time Seen by Provider: 01:02 Initial Comments The patient presents to the ER by private conveyance with a chief complaint that she is still having midepigastric and right upper quadrant abdominal pain that radiates around to her back and feels like a nerve shock. She says the pain started up about 20-30 minutes prior to arrival. She ate dinner at 7:30 last night about 5 hours ago and had tacos. She had the same presentation about one week ago and had evaluation for possible kidney stones but no stones were seen. She did have a little dilated ureter that was associated with her recent . She had a approximately one month ago. She's having no dysuria, discharge, fevers, chills, coughs or shortness of breath. She is it does hurt a little bit to take deep breath. She has no known history of gallbladder disease, peptic ulcer disease, pancreatitis. She does not drink alcohol have high cholesterol or have any recent trauma. She has not taken anything for her pain tonight because she decided to come to the ER instead. Allergies and Home Medications Allergies Coded Allergies: No Known Drug Allergies (Unverified , 11/30/17) Home Medications Docusate Sodium 100 Mg Capsule, 100 MG PO BID Prescribed by: JUDI LOMAS on 12/02/171710 Ferrous Sulfate, Dried 159 Mg Tablet.er, 159 MG PO DAILY, (Reported) Ibuprofen 800 Mg Tablet, 800 MG PO Q6H Prescribed by: JUDI LOMAS on 12/02/171710 Oxycodone HCl/Acetaminophen 1 Each Tablet, 1-2 TAB PO Q4HR PRN for PAIN- MODERATE TO SEVERE Prescribed by: JUDI LOMAS on 12/02/17 1711 [id number]/Iron Fumarate/FA/Dss 1 Each Tablet, 1 EACH PO DAILY, (Reported) Patient Home Medication List Home Medication List Reviewed: Yes Review of Systems Constitutional: No chills, No diaphoresis EENTM: No Blurred Vision, No Double Vision Respiratory: Denies Cough, Denies Shortness of Air Cardiovascular: Denies Chest Pain, Denies Edema, Denies Irregular Heart Rate Gastrointestinal: See HPI; Denies Abdomen Distended; Abdominal Pain; Denies Constipated; Diarrhea (soft stools), Nausea; Denies Vomiting Genitourinary: Denies Burning, Denies Discharge Musculoskeletal: see HPI, back pain; No joint pain Past Ofhicmg-Cfexpv-Cnupsu Hx Patient Social History Alcohol Use: Denies Use Recreational Drug Use: No Smoking Status: Never a Smoker Recent Foreign Travel: No Contact w/Someone Who Travel: No Recent Infectious Disease Expo: No Recent Hopitalizations: No Physical Abuse: No Sexual Abuse: No Mistreated: No Fear: No Immunizations Up To Date Tetanus Booster (TDap): Unknown Seasonal Allergies Seasonal Allergies: Yes Past Medical History Surgeries: Yes (wisdom teeth and tonsillectomy) Section Respiratory: No Cardiac: No Neurological: No Sexually Transmitted Disease: No HIV/AIDS: No Genitourinary: No Gastrointestinal: No Musculoskeletal: No Endocrine: No HEENT: No Cancer: No Psychosocial: No Nursing Suicide Risk Score: 0 Integumentary: No Blood Disorders: No Adverse Reaction/Blood Tranf: No Family Medical History Hypertension 19 FATHER Physical Exam Vital Signs Vital Signs - First Documented 01/04/18 01:00 Temp 97.6 Pulse 106 Resp 24 B/P (MAP) 156/90 (112) Pulse Ox 99 O2 Delivery Room Air Capillary Refill : Less Than 3 Seconds General Appearance: WD/WN, mild distress (anxious, crying out loudly in the lobby but calm in the room. ) HEENT: PERRL/EOMI, normal ENT inspection Neck: non-tender, full range of motion, supple, normal inspection Respiratory: chest non-tender, lungs clear, normal breath sounds, no respiratory distress, no accessory muscle use Cardiovascular: normal peripheral pulses, regular rate, rhythm, no edema Gastrointestinal: normal bowel sounds, soft, no organomegaly; No guarding, No rebound; tenderness (midepigastric tenderness but negative for Butler sign or for McBurney's point tenderness) Extremities: normal range of motion, normal capillary refill Back: normal inspection, no CVA tenderness, no vertebral tenderness Neurologic/Psychiatric: alert, normal mood/affect, oriented x 3 Skin: normal color, warm/dry Progress/Results/Core Measures Lab Results Laboratory Tests Test 01/04/18 01:15 Range/Units White Blood Count 11.9 H 4.3-11.0 10^3/uL Red Blood Count 4.84 4.35-5.85 10^6/uL Hemoglobin 13.5 11.5-16.0 G/DL Hematocrit 38 35-52 % Mean Corpuscular Volume 79 L 80-99 FL Mean Corpuscular Hemoglobin 28 25-34 PG Mean Corpuscular Hemoglobin Concent 35 32-36 G/DL Red Cell Distribution Width 12.7 10.0-14.5 % Platelet Count 206 130-400 10^3/uL Mean Platelet Volume 11.6 H 7.4-10.4 FL Neutrophils (%) (Auto) 54 42-75 % Lymphocytes (%) (Auto) 36 12-44 % Monocytes (%) (Auto) 6 0-12 % Eosinophils (%) (Auto) 4 0-10 % Basophils (%) (Auto) 0 0-10 % Neutrophils # (Auto) 6.5 1.8-7.8 X 10^3 Lymphocytes # (Auto) 4.3 H 1.0-4.0 X 10^3 Monocytes # (Auto) 0.7 0.0-1.0 X 10^3 Eosinophils # (Auto) 0.5 H 0.0-0.3 10^3/uL Basophils # (Auto) 0.0 0.0-0.1 10^3/uL Sodium Level 139 135-145 MMOL/L Potassium Level 3.3 L 3.6-5.0 MMOL/L Chloride Level 105 98-107 MMOL/L Carbon Dioxide Level 25 21-32 MMOL/L Anion Gap 9 5-14 MMOL/L Blood Urea Nitrogen 12 7-18 MG/DL Creatinine 0.72 0.60-1.30 MG/DL Estimat Glomerular Filtration Rate > 60 BUN/Creatinine Ratio 17 Glucose Level 120 H 70-105 MG/DL Calcium Level 9.5 8.5-10.1 MG/DL Total Bilirubin 0.4 0.1-1.0 MG/DL Aspartate Amino Transf (AST/SGOT) 28 5-34 U/L Alanine Aminotransferase (ALT/SGPT) 50 0-55 U/L Alkaline Phosphatase 109 40-136 U/L C-Reactive Protein High Sensitivity 1.29 H 0.00-0.50 MG/DL Total Protein 7.1 6.4-8.2 GM/DL Albumin 4.1 3.2-4.5 GM/DL Lipase 13 8-78 U/L Serum Test, Qualitative NEGATIVE NEGATIVE My Orders Orders - EHLENE VENEGAS Ketorolac Injection (Toradol Injection) (01/04/18 01:15) Saline Lock/Iv-Start (01/04/18 01:03) Ondansetron Injection (Zofran Injectio (01/04/18 01:15) Cbc With Automated Diff (01/04/18 01:09) Comprehensive Metabolic Panel (01/04/18 01:09) Hs C Reactive Protein (01/04/18 01:09) Hcg,Qualitative Serum (01/04/18 01:09) Lipase (01/04/18 01:09) Ua Culture If Indicated (01/04/18 01:09) Lactated Ringers (Lr 1000 Ml Iv Solution (01/04/18 01:09) Lidocaine 2% Viscous 15 Ml (Xylocaine Vi (01/04/18 01:15) Famotidine Tablet (Pepcid Tablet) (01/04/18 01:09) Antacid Suspension (Mylanta Suspension (01/04/18 01:15) Ondansetron Injection (Zofran Injectio (01/04/18 01:09) Antacid Suspension (Mylanta Suspension (01/04/18 01:09) Lidocaine 2% Viscous 15 Ml (Xylocaine Vi (01/04/18 01:09) Us Gallbladder [id number] (01/04/18 01:28) Famotidine Injection (Pepcid Injection) (01/04/18 01:30) Ranitidine Injection (Zantac Injection) (01/04/18 01:35) Ranitidine Injection (Zantac Injection) (01/04/18 01:31) Medications Given in ED Current Medications Medications Dose Ordered Sig/Froy Route Start Time Stop Time Status Last Admin Dose Admin Al Hydrox/Mg Hydrox/Simethicone 30 ml ONCE ONCE PO 01/04/18 01:15 01/04/18 01:16 DC 01/04/18 01:13 30 ML Ketorolac Tromethamine 30 mg ONCE ONCE IVP 01/04/18 01:15 01/04/18 01:16 DC 01/04/18 01:18 30 MG Lactated Ringer's 1,000 ml @ 0 mls/hr Q0M ONCE IV 01/04/18 01:09 01/04/18 01:12 DC 01/04/18 01:39 1,000 MLS/HR Lidocaine HCl 15 ml ONCE ONCE PO 01/04/18 01:15 01/04/18 01:16 DC 01/04/18 01:13 15 ML Ondansetron HCl 4 mg ONCE ONCE IVP 01/04/18 01:15 01/04/18 01:16 DC 01/04/18 01:17 4 MG Vital Signs/I&O 01/04/18 01:00 Temp 97.6 Pulse 106 Resp 24 B/P (MAP) 156/90 (112) Pulse Ox 99 O2 Delivery Room Air Blood Pressure Mean: 112 Progress Note : Time: 01:26 Progress Note With no history of kidney stones or stones seen on the renal pelvis and the CT from last week possibilities could be gallbladder however her symptoms came on over 5 hours after eating. She is having some soft stools, nausea, right upper quadrant midepigastric pain. Ordered some NSAIDs which seem to work in the past as well as a GI cocktail this time. Within seconds of administering the GI cocktail the patient remarks that her pain was being alleviated. Other differential would include PUD, gastritis, gallbladder. Diagonstic Imaging: Ultrasound Plain Films/CT/US/NM/MRI: abdomen (gb) Comments Patient was small gallstones but no wall thickness, ductal dilatation or obstruction. Reviewed: Reviewed by Me Departure Impression Primary Impression: Biliary colic symptom Disposition: HOME, SELF-CARE Condition: Improved Departure-Patient Inst. Decision time for Depature: 02:19 Referrals: JEREMIAH WEIR MD (PCP/Family) Primary Care Physician Patient Instructions: Gallstones (DC) Add. Discharge Instructions: Drink water and use Pepcid or ranitidine twice a day. Plan to follow up with your primary care physician and discuss further workup of your gallbladder. Avoid spicy, dairy and greasy foods. All discharge instructions reviewed with patient and/or family. Voiced understanding. Copy Copies To 1: JEREMIAH WEIR MD, TITUS J Jan 04, 2018 01:14
[2018-01-04] MEDS ORDERED: LIDOCAINE 2% VISCOUS 15 ML UDC PO ONE (01:15)
[2018-01-04] MEDS ORDERED: ONDANSETRON 4 MG/2 ML (SDV) Z0FRAN IVP ONE (01:15)
[2018-01-04] MEDS ORDERED: KETOROLAC 30 MG/ML VIAL IVP ONE (01:15)
[2018-01-04] MEDS ORDERED: ANTACID SUSP 30 ML UDC (MYLANTA) PO ONE (01:15)
[2018-01-04] MEDS ORDERED: FAMOTIDINE 20MG/2ML IV (PEPCID) IVP ONE (01:30)
[2018-01-04] MEDS ORDERED: raNItidine 50 MG/2 ML INJ (ZANTAC) ONE (01:31)
[2018-01-04 01:33] LABS: BASOPHILS % (AUTO) 0 % (0-10); EOSINOPHILS # (AUTO) 0.5 10^3/uL (0.0-0.3); EOSINOPHILS % (AUTO) 4 % (0-10); HEMATOCRIT 38 % (35-52); HEMOGLOBIN 13.5 G/DL (11.5-16.0); LYMPHOCYTES # (AUTO) 4.3 X 10^3 (1.0-4.0); LYMPHOCYTES % (AUTO) 36 % (12-44); MEAN CORPUSCULAR HEMOGLOBIN 28 PG (25-34); MEAN CORPUSCULAR HGB CONC 35 G/DL (32-36); MEAN CORPUSCULAR VOLUME 79 FL (80-99); MEAN PLATELET VOLUME 11.6 FL (7.4-10.4); MONOCYTES # (AUTO) 0.7 X 10^3 (0.0-1.0); MONOCYTES % (AUTO) 6 % (0-12); NEUTROPHILS # (AUTO) 6.5 X 10^3 (1.8-7.8); NEUTROPHILS % (AUTO) 54 % (42-75); PLATELET COUNT 206 10^3/uL (130-400); RED BLOOD COUNT 4.84 10^6/uL (4.35-5.85); RED CELL DISTRIBUTION WIDTH 12.7 % (10.0-14.5); WHITE BLOOD COUNT 11.9 10^3/uL (4.3-11.0)
[2018-01-04] MEDS ORDERED: raNItidine 50 MG/2 ML INJ (ZANTAC) IM/IV STA (01:35)
[2018-01-04 01:48] LABS: ALANINE AMINOTRANSFERASE 50 U/L (0-55); ALBUMIN 4.1 GM/DL (3.2-4.5); ALKALINE PHOSPHATASE 109 U/L (40-136); BILIRUBIN,TOTAL 0.4 MG/DL (0.1-1.0); BUN/CREATININE RATIO 17; CALCIUM 9.5 MG/DL (8.5-10.1); CARBON DIOXIDE 25 MMOL/L (21-32); CHLORIDE 105 MMOL/L (98-107); CREATININE SERUM 0.72 MG/DL (0.60-1.30); GFR ESTIMATED > 60; GLUCOSE 120 MG/DL (70-105); LIPASE 13 U/L (8-78); POTASSIUM 3.3 MMOL/L (3.6-5.0); SODIUM 139 MMOL/L (135-145); TOTAL PROTEIN 7.1 GM/DL (6.4-8.2)
[2018-01-04] MEDS ORDERED: ACETAMINOPHEN 500 MG TAB (TYLENOL) ONE (02:43)
[2018-01-04] MEDS ORDERED: ACETAMINOPHEN 500 MG TAB (TYLENOL) PO ONE (02:45)
[2018-01-04 02:49] VITALS: BP 136/88
--- NOTE | 2018-01-04 07:11 | Diagnostic Imaging Report ---
PROCEDURE: US Gallbladder. TECHNIQUE: Multiple real-time grayscale images were obtained over the right upper quadrant in various projections. INDICATION: Right upper quadrant pain. FINDINGS: There is hepatomegaly with liver measuring approximately 21 cm in long axis. There is increased echogenicity consistent with fatty change. There are multiple small gallstones present. Gallbladder shows no wall thickening or pericholecystic edema. Bile ducts are not dilated. Common duct measures 5 mm. The pancreas is obscured by bowel gas. Right kidney appears normal. There is no ascites. IMPRESSION: 1. Cholelithiasis without evidence of acute cholecystitis. 2. Hepatomegaly. Dictated by: Dictated on workstation # [id number]
[2018-01-05] MEDS ORDERED: DOCU-143 PO (10:47)
== END 2018-01-04 02:49 | disposition home or self-care (01) ==
LOC: EDUNIT# 00:55 → ER 00:57
DX: R10.13 Epigastric pain (principal); Z32.02 Encounter for pregnancy test, result negative; Z87.59 Personal history of other complications of pregnancy, childbirth and the puerperium; Z90.89 Acquired absence of other organs
CPT/HCPCS: 36415; 76705; 80053; 83690; 84703; 85025; 86141; 96361; 96374; 96375

== ENCOUNTER 2018-01-05 09:06 | Day surgery (SDC) | payer BC ==
[~2018-01-05] VITALS: Ht 170.2 cm; Wt 113.4 kg
[2018-01-05] MEDS ORDERED: BUPIVACAINE 0.5% 30 ML (SENSORCAINE) VIAL ONE (09:07)
[2018-01-05] MEDS ORDERED: LIDOCAINE 1% INJ 20 ML 20 ML VIAL ONE (09:08)
[2018-01-05] MEDS ORDERED: ceFAZolin 2 GM IV Premixed 50 ML IV ONE (09:30)
[2018-01-05] MEDS ORDERED: CATHETER FLUSH 10 ML SYR IV PRN (09:30)
[2018-01-05] MEDS ORDERED: ONDANSETRON 4 MG/2 ML (SDV) Z0FRAN ONE (09:32)
[2018-01-05] MEDS ORDERED: DEXAMETHASONE 10 MG/ML (DECADRON) 1 ML VIAL ONE (09:32)
[2018-01-05] MEDS ORDERED: SEVOFLURANE (ULTANE) 15 ML INHAL SOLN ONE ×3 (09:32→10:29)
[2018-01-05] MEDS ORDERED: proPOfol 200 MG/20 ML (DIPRIVAN) VIAL IV ONE (09:32)
[2018-01-05] MEDS ORDERED: fentaNYL INJECTION 100 MCG/2 ML AMP ONE ×3 (09:32→11:07)
[2018-01-05] MEDS ORDERED: LIDOCAINE PF 2% 5 ML (XYLOCAINE) VIAL ONE (09:32)
[2018-01-05] MEDS ORDERED: MIDAZOLAM 2 MG/2 ML (VERSED) VIAL ONE (09:32)
[2018-01-05] MEDS ORDERED: ROCURONIUM 10 MG/ML 5 ML SYRINGE IV ONE ×2 (09:40→10:29)
--- NOTE | 2018-01-05 09:51 | Progress Note-Pre Operative ---
Pre-Operative Progress Note H&P Reviewed The H&P was reviewed, patient examined and no changes noted. Date Seen by Provider: Jan 05, 2018 Time Seen by Provider: 09:51 Date H&P Reviewed: Jan 05, 2018 Time H&P Reviewed: 09:51 Pre-Operative Diagnosis: cholelithiasis DOTTY BORREGO DO Jan 05, 2018 09:51
[2018-01-05] MEDS ORDERED: SUCCINYLCHOLINE INJ 100 MG/5 ML SYR ONE (09:55)
[2018-01-05 10:22] VITALS: BP 127/86
[2018-01-05] MEDS ORDERED: GLYCOPYRROLATE 0.2 MG/ML (ROBINUL) 2 ML VIAL ONE (10:40)
[2018-01-05] MEDS ORDERED: NEOSTIGMINE 1 MG/ML 5 ML SYRINGE ONE (10:40)
[2018-01-05] MEDS ORDERED: DOCU-143 PO (10:47)
--- NOTE | 2018-01-05 10:47 | Progress Note-Post Operative ---
Post-Operative Progess Note Surgeon (s)/Foundation Drill Operator Helper (s) Surgeon DOTTY BORREGO DO Foundation Drill Operator Helper: Dr. Santos Pre-Operative Diagnosis cholelithiasis Post-Operative Diagnosis same Procedure & Operative Findings Date of Procedure 01/05/18 Procedure Performed/Findings lap suni c ioc Anesthesia Type gen Estimated Blood Loss Estimated blood loss (mL): min Specimens/Packing Specimens Removed gallbladder DOTTY BORREGO DO Jan 05, 2018 10:47
--- NOTE | 2018-01-05 10:49 | Discharge Inst-Simple/Standard ---
Discharge Inst-Standard Discharge Medications New, Converted or Re-Newed RX: Transmitted to Pharmacy Patient Instructions/Follow Up Plan of Care/Instructions/FU: 2 weeks Mariella Activity as Tolerated: No Discharge Diet: Regular Diet Other Inst to Patient Follow up Appt: Make appointment for 2 weeks. Instructions: No lifting greater than 10 pounds. No strenuous activity. May shower in 24 hours, no tub bath or soaking. Use incentive spirometer at home as directed. No Smoking Skin/Wound Care: You have special glue over incisions it will fall off on its own. Symptoms to Report: Appetite Changes, Extremity Discoloration, Numbness/Tingling, Swelling Increased , Bleeding Excessive, Eyesight Changes, Pain Increased, Urine Color Change, Constipation(Persistent), Fever over 101 degree F, Pain/Pressure in chest, Urinating Difficulty, Cough Up/Vomit Blood, Heart Beat Irreg/Pounding, Pain/ Pressure in jaw, Vaginal Bleeding Increase, Cramps in feet or legs, Lightheadedness, Pain/Pressure in shoulder, Diarrhea(Persistent), Memory Changes Suddenly, Questions/Concerns, Weight gain consecutive days, Dizziness/ Fainting, Nausea/Vomiting, Shortness of Breath, Weight gain over 2 pounds. If eyes or skin turn yellow notify physician. If questions or concerns contact your physician Or seek help at emergency department. DOTTY BORREGO DO Jan 05, 2018 10:49
[2018-01-05] MEDS ORDERED: morphine INJ 10 MG/ML 1ML (SYR OR VIAL) ONE (10:59)
[2018-01-05] MEDS ORDERED: HYDROcodone/APAP 5 MG/325 MG (LORTAB) TAB PO PRN (11:00)
[2018-01-05] MEDS: morphine INJ 10 MG/ML 1ML (SYR OR VIAL) IVP PRN ×2 (11:04→11:08)
[2018-01-05] MEDS: fentaNYL INJECTION 100 MCG/2 ML AMP IVP PRN ×2 (11:14→11:22)
[2018-01-05] MEDS ORDERED: HYDROmorphone 2 MG/ML VIAL (DILAUDID) IVP PRN (11:15)
[2018-01-05] MEDS ORDERED: ONDANSETRON 4 MG/2 ML (SDV) Z0FRAN IVP PRN (11:15)
[2018-01-05 11:50] VITALS: BP 131/84
--- NOTE | 2018-01-05 12:14 | Anesthesia-General Post-Op ---
General Patient Condition Mental Status/LOC: Same as Preop Cardiovascular: Satisfactory Nausea/Vomiting: Absent Respiratory: Satisfactory Pain: Controlled Complications: Absent Post Op Complications Complications None Follow Up Care/Instructions Patient Instructions None needed. Anesthesia/Patient Condition Patient Condition Patient is doing well, no complaints, stable vital signs, no apparent adverse anesthesia problems. No complications reported per nursing. [place] [facility] [place]: [place] АНДРЕЙ SINGLETON CRNA Jan 05, 2018 12:14
[2018-01-05 12:20] VITALS: BP 128/81
[2018-01-05 12:50] VITALS: BP 135/84
[2018-01-05 13:10] VITALS: BP 135/84
[2018-01-05] MEDS ORDERED: LACTATED RINGERS 1,000 ML IV PRN (13:30)
--- NOTE | 2018-01-05 18:43 | Diagnostic Imaging Report ---
INDICATION: Operative cholangiogram. EXAMINATION: Fluoroscopy. Fluoroscopic assistance was provided for Dr. Wolff during his laparoscopic cholecystectomy procedure. 10.6 seconds of fluoroscopy time was utilized. 56 images of the right upper quadrant were obtained. FINDINGS: There are laparoscopic devices in place. There has been opacification of the common bile duct via a cystic duct catheter. There is no definite defect to suggest a retained calculus and contrast is seen extending into the small bowel. There is also some extravasated contrast in the gallbladder fossa. IMPRESSION: Fluoroscopic assistance was provided for Dr. Wolff. Dictated by: Dictated on workstation # [id number]
--- NOTE | 2018-01-06 01:08 | OPERATIVE REPORT ---
DATE OF SERVICE: 01/05/2018 PREOPERATIVE DIAGNOSIS: Cholelithiasis. POSTOPERATIVE DIAGNOSIS: Cholelithiasis. PROCEDURE: Laparoscopic cholecystectomy with intraoperative cholangiogram. SURGEON: Maxim Wolff DO SAMPLE COLOR MAKER: Dr. Santos, assisted in retraction, dissection and closure. ESTIMATED BLOOD LOSS: Minimal. COMPLICATIONS: None. INDICATIONS: The patient is a 22-year-old female with symptoms consistent with symptomatic cholelithiasis. Gallbladder ultrasound demonstrating multiple gallstones. She understands risks and benefits of procedure and wished to proceed with procedure. Consent was signed in the chart. DESCRIPTION OF PROCEDURE: The patient was taken to the operating suite. She was prepped and draped in sterile fashion. Surgical pause was performed. Local anesthetic was infiltrated superior to the umbilicus. A 11 blade scalpel was used to make an incision. Cautery was used to dissect down to the fascia, which was then scored and grasped and the abdomen was entered. The balloon trocar was inserted into the abdomen and pneumoperitoneum was achieved. Under direct visualization of the laparoscope, a 5 mm trocar was placed in the subxiphoid region and two 5 mm trocars were placed in the right upper quadrant. The gallbladder was grasped and elevated. There are some slight adhesions towards the neck of the gallbladder. These were taken down and the cystic duct and cystic artery were dissected out. Clips were placed on the proximal and distal portion of the cystic artery and a clip was placed on the distal portion of the cystic duct. The duct was then partially transected. Arrow catheter was inserted and cholangiogram was then performed. There were no filling defects. Contrast made its way into the duodenum without difficulty. The Arrow catheter was removed. Clips were placed on the proximal portion of the cystic duct and the duct and artery were then completely transected. Hook cautery was used to dissect the gallbladder from the gallbladder fossa achieving hemostasis. Once removed, the gallbladder was placed in an Endobag and removed through the 12 mm trocar site. Copious amounts of irrigation were used to irrigate the abdomen and suction. Hemostasis was achieved. The ports were removed. A #0 Vicryl suture was placed in a [id number] fashion at the 12 mm fascial defect. The skin was then closed using 4-0 Monocryl. The abdomen was washed and dried and Skin Affix was placed over the incisions. The patient tolerated the procedure well without any complications. She was taken to the recovery room in stable condition. Job ID: [id number] DocumentID: [id number] Dictated Date: 01/05/2018 12:26:01 Information Security Date: 01/05/2018 23:00:47 Dictated By: DO CONSTANZA MAYNARD
== END 2018-01-05 13:10 | disposition home or self-care (01) ==
LOC: SDC 09:06
PROVIDERS: ATTEND Surgery
DX: O26.63 Liver and biliary tract disorders in the puerperium (principal); K80.10 Calculus of gallbladder with chronic cholecystitis without obstruction
CPT/HCPCS: 84703; 87081; 88304; 94664

== ENCOUNTER → 2018-05-22 | Outpatient (CLI) | payer BC ==
[~2018-05-22] MED LIST changes: +DOCU-143 PO
--- NOTE | 2018-05-22 14:48 | Diagnostic Imaging Report ---
PROCEDURE: CT abdomen without contrast. TECHNIQUE: Multiple contiguous axial images were obtained through the abdomen without the use of intravenous contrast. INDICATION: Enlarged spleen and mesenteric nodes. The study is performed for followup. Correlation is made with prior study from 12/29/2017. FINDINGS: Lung bases are clear. No discrete liver mass is identified. The gallbladder is surgically absent. The pancreas is unremarkable. The spleen remains enlarged measuring 15.6 cm compared with approximately 15.0 cm on prior. No adrenal mass is identified. No renal calculi or hydronephrosis is seen. The aorta is nonaneurysmal. The bowel loops are normal caliber. There is no ascites. Multiple mesenteric lymph nodes are again noted but appear to be less prominent when compared with the prior CT. No new abnormality is detected. IMPRESSION: 1. Continued splenomegaly. 2. Improvement in prominent central mesenteric lymph nodes when compared with examination from 12/29/2017. Dictated by: Dictated on workstation # [id number]
== END ==
LOC: RAD 13:55
PROVIDERS: ATTEND Family Medicine
DX: R16.1 Splenomegaly, not elsewhere classified (principal); Z90.49 Acquired absence of other specified parts of digestive tract
CPT/HCPCS: 74150

== ENCOUNTER → 2018-05-26 | Outpatient (CLI) | payer BC ==
[2018-05-26 16:56] LABS: ABSOLUTE RETIC # 82 10e9/L (24-90); BASOPHILS % (AUTO) 0 % (0-10); EOSINOPHILS # (AUTO) 0.3 10^3/uL (0.0-0.3); EOSINOPHILS % (AUTO) 3 % (0-10); HEMATOCRIT 37 % (35-52); HEMOGLOBIN 12.8 G/DL (11.5-16.0); LYMPHOCYTES # (AUTO) 2.8 X 10^3 (1.0-4.0); LYMPHOCYTES % (AUTO) 33 % (12-44); MEAN CORPUSCULAR HEMOGLOBIN 27 PG (25-34); MEAN CORPUSCULAR HGB CONC 35 G/DL (32-36); MEAN CORPUSCULAR VOLUME 78 FL (80-99); MEAN PLATELET VOLUME 11.8 FL (7.4-10.4); MONOCYTES # (AUTO) 0.5 X 10^3 (0.0-1.0); MONOCYTES % (AUTO) 6 % (0-12); NEUTROPHILS # (AUTO) 5.1 X 10^3 (1.8-7.8); NEUTROPHILS % (AUTO) 59 % (42-75); PLATELET COUNT 232 10^3/uL (130-400); RED BLOOD COUNT 4.67 10^6/uL (4.35-5.85); RED CELL DISTRIBUTION WIDTH 12.8 % (10.0-14.5); RETICULOCYTE % 1.75 % (0.50-2.40); WHITE BLOOD COUNT 8.7 10^3/uL (4.3-11.0)
[2018-05-26 17:41] LABS: BAND NEUTROPHILS 2 %; BASOPHILS % (MANUAL) 0 %; EOSINOPHILS % (MANUAL) 2 %; LYMPHOCYTES % (MANUAL) 31 %; MONOCYTES % (MANUAL) 2 %; NEUTROPHILS % (MANUAL) 63 %; RBC MORPH NORMAL
== END ==
LOC: LAB 16:22
PROVIDERS: ATTEND Family Medicine
DX: R16.1 Splenomegaly, not elsewhere classified (principal)
CPT/HCPCS: 36415; 85007; 85027; 85045

== ENCOUNTER 2021-02-27 12:40 | Emergency (ER) | payer BC ==
[~2021-02-27] VITALS: Ht 170 cm; Wt 113.6 kg
[~2021-02-27 12:40] MED LIST changes: -OXYC-465 PO; +OXYC-556 PO
[2021-02-27 13:40] LABS: BILIRUBIN,URINE NEGATIVE (NEGATIVE); CLARITY,URINE CLEAR; COLOR,URINE YELLOW; GLUCOSE, URINE (UA) NEGATIVE (NEGATIVE); KETONES,URINE NEGATIVE (NEGATIVE); LEUKOCYTE ESTERASE ,URINE TRACE (NEGATIVE); NITRITE,URINE NEGATIVE (NEGATIVE); PH,URINE 6.5 (5-9); PROTEIN,URINE NEGATIVE (NEGATIVE)
[2021-02-27 13:47] LABS: BACTERIA,URINE TRACE /HPF; RBC,URINE 0-2 /HPF
--- NOTE | 2021-02-27 14:13 | ED GU-Female ---
General Chief Complaint: OB < 20 WEEKS Stated Complaint: CRAMPING/ 4 WEEKS Nursing Triage Note: AMB TO ROOM REPORTS THAT IS 4 WEEKS PREG HAD POS PREG TEST 2 DAYS ONSET OF CRAMPING TODAY NO BLEEDING. Nursing Sepsis Screen: No Definite Risk Source: patient Exam Limitations: no limitations History of Present Illness Date Seen by Provider: Feb 27, 2021 Time Seen by Provider: 13:01 Initial Comments Ranjana is a 25-year-old 3 para 1 at approximately 4 weeks gestational age with an LMP of January 30. She is visiting [place] from [place], [place]. She had a positive test 2 days ago. Around that same time she started experiencing cramping. She denies any discharge or bleeding. No pain with intercourse. She had a prior miscarriage and feels something is wrong with this and she may be having another threatened . She presently takes Zoloft for anxiety and Metformin for gynecologic reasons. Allergies and Home Medications Allergies Coded Allergies: No Known Drug Allergies (Unverified , 11/30/17) Home Medications Docusate Sodium 100 Mg Capsule, 100 MG PO DAILY Prescribed by: DOTTY BORREGO on 01/05/18 1047 Oxycodone HCl/Acetaminophen 1 Each Tablet, 1-2 TAB PO Q4HR PRN for PAIN-MODERATE TO SEVERE Prescribed by: JUDI LOMAS on 12/02/17 1711 Patient Home Medication List Home Medication List Reviewed: Yes Review of Systems Review of Systems Constitutional: no symptoms reported EENTM: no symptoms reported Respiratory: no symptoms reported Cardiovascular: no symptoms reported Gastrointestinal: no symptoms reported Genitourinary: see HPI : Yes LMP: January 30, 2021 Musculoskeletal: no symptoms reported Skin: no symptoms reported Psychiatric/Neurological: See HPI Endocrine: No Symptoms Reported Hematologic/Lymphatic: No Symptoms Reported Past Gnluyzu-Guxdsn-Mfimji Hx Patient Social History Alcohol Use: Denies Use Smoking Status: Never a Smoker Recent Infectious Disease Expo: No Recent Hopitalizations: No Immunizations Up To Date Tetanus Booster (TDap): Unknown Seasonal Allergies Seasonal Allergies: Yes Past Medical History Surgeries: Yes (wisdom teeth and tonsillectomy) Section Respiratory: No Cardiac: No Neurological: No : Yes Last Menstrual Period: January 30, 2021 Hx : 3 Hx Para: 1 Hx Total # of Abortions (Sp): 1 Reproductive Disorders: No Sexually Transmitted Disease: No HIV/AIDS: No Genitourinary: No Gastrointestinal: Yes Gall Bladder Disease Musculoskeletal: No Endocrine: No HEENT: No Cancer: No Psychosocial: No Integumentary: No Blood Disorders: No Adverse Reaction/Blood Tranf: No Family Medical History Hypertension 19 FATHER Physical Exam Vital Signs Vital Signs - First Documented 02/27/21 12:55 Temp 36.8 Pulse 104 Resp 18 B/P (MAP) 154/103 (120) Pulse Ox 96 O2 Delivery Nasal Cannula Capillary Refill : Less Than 3 Seconds Height, Weight, BMI Height: 5'7.00" Weight: 250lbs. 0.0oz. [id number]; 39.00 BMI Method:Stated General Appearance: WD/WN, other (Anxious) HEENT: normal ENT inspection Cardiovascular: regular rate, rhythm, no edema, no murmur Respiratory: lungs clear, normal breath sounds, no respiratory distress Gastrointestinal: normal bowel sounds, non tender, soft Extremities: normal inspection, no pedal edema Neurologic/Psychiatric: bone density technician II-XII nml as tested, no motor/sensory deficits, alert, oriented x 3, other (Anxious) Skin: normal color, warm/dry Progress/Results/Core Measures Suspected Sepsis Recent Fever Within 48 Hours: No Infection Criteria Present: None New/Unexplained Altered Menta: No Sepsis Screen: No Definite Risk SIRS Temperature: Pulse: 104 Respiratory Rate: 18 Blood Pressure 154 /103 Mean: 120 Results/Orders Lab Results Laboratory Tests Test 02/27/21 13:18 02/27/21 13:35 Range/Units Human Chorionic Gonadotropin, Quant 79 H <5 MIU/ML Urine Color YELLOW Urine Clarity CLEAR Urine pH 6.5 5-9 Urine Specific Junction 1.010 L 1.016-1.022 Urine Protein NEGATIVE NEGATIVE Urine Glucose (UA) NEGATIVE NEGATIVE Urine Ketones NEGATIVE NEGATIVE Urine Nitrite NEGATIVE NEGATIVE Urine Bilirubin NEGATIVE NEGATIVE Urine Urobilinogen 0.2 < = 1.0 MG/DL Urine Leukocyte Esterase TRACE H NEGATIVE Urine RBC (Auto) NEGATIVE NEGATIVE Urine RBC 0-2 /HPF Urine WBC 2-5 /HPF Urine Squamous Epithelial Cells 2-5 /HPF Urine Crystals NONE /LPF Urine Bacteria TRACE /HPF Urine Casts NONE /LPF Urine Mucus NEGATIVE /LPF Urine Culture Indicated NO My Orders Orders - KENYATTA WHELAN MD Hcg,Quantitative (02/27/21 13:12) Ua Culture If Indicated (02/27/21 13:12) Vital Signs/I&O 02/27/21 02/27/21 12:55 14:27 Temp 36.8 36.8 Pulse 104 104 Resp 18 18 B/P (MAP) 154/103 (120) 154/103 (120) Pulse Ox 96 96 O2 Delivery Nasal Cannula Capillary Refill : Less Than 3 Seconds Blood Pressure Mean: 120 Progress Note : Progress Note Patient is only about 4 weeks gestational age. hCG was rather low consistent with the first few weeks of . Urinalysis was unremarkable. In the absence of abdominal pain or tenderness and at only 4 weeks gestational age, there is no significant value to emergent ultrasound. Return precautions and follow-up instructions were given to patient and she was discharged into the outpatient care of her temperature regulator pyrometer. Departure Impression Primary Impression: Pelvic cramping in antepartum period Disposition: 01 HOME, SELF-CARE Condition: Stable Departure-Patient Inst. Decision time for Depature: 14:00 Referrals: JEREMIAH WEIR MD (PCP/Family) Primary Care Physician Patient Instructions: Pelvic Pain ED Add. Discharge Instructions: Follow-up with your temperature regulator pyrometer as soon as possible. Your hCG level is 79 which correlates with a very early . Your hCG level and eventually an ultrasound can be used to monitor the progression of as directed by your temperature regulator pyrometer. Call with questions or concerns. Return to care if you have worsening symptoms such as notable vaginal bleeding, fever over 100 degrees, unusual vaginal discharge, or escalating pain. Also return if you have any other concerning symptoms you believe need urgent attention. Drink plenty of clear liquids to stay well-hydrated. All discharge instructions reviewed with patient and/or family. Voiced understanding. KENYATTA WHELAN MD Feb 27, 2021 14:13
[2021-02-27 14:27] VITALS: BP 154/103
== END 2021-02-27 14:27 | disposition home or self-care (01) ==
LOC: EDUNIT# 12:40 → ER 12:43
DX: O26.891 Other specified pregnancy related conditions, first trimester (principal); R10.2 Pelvic and perineal pain; F41.9 Anxiety disorder, unspecified; Z3A.01 Less than 8 weeks gestation of pregnancy; Z79.899 Other long term (current) drug therapy
CPT/HCPCS: 36415; 81000; 84702; 99282